=== PATIENT | male | born 1955 | race Caucasian/White ===

== ENCOUNTER 2017-06-11 18:25 | Inpatient (IN) | payer BC, OTHER ==
[~2017-06-11] VITALS: Ht 177.8 cm; Wt 84.3 kg
[2017-06-11 21:17] VITALS: BP 112/56; PULSE 100; PULSE 90; TEMP 98.6
[2017-06-11] MEDS ORDERED: ZOVIRAX400 MG PO (21:26)
[2017-06-11] MEDS ORDERED: ZYLOPRIM 300MG300 MG PO (21:27)
[2017-06-11] MEDS ORDERED: GLUCOPHAGE XR750 MG PO (21:28)
[2017-06-11] MEDS ORDERED: GLUCOTROL 5M5 MG/TAB PO (21:28)
[2017-06-11] MEDS ORDERED: ATIVAN 0.50.5 MG/TAB PO (21:29)
[2017-06-11] MEDS ORDERED: COMPAZINE 110 MG/TAB PO (21:30)
[2017-06-12] VITALS (14 sets, daily range): BP systolic 107–141; BP diastolic 40–61; PULSE 84–108; TEMP 97.1–98.6
[2017-06-12] MEDS ORDERED: LYRICA300 MG PO (03:41)
[2017-06-12 07:29] LABS: MEAN CELL VOLUME 85 fl (80.0-100.0); MEAN CORPUSCULAR HGB CONC 33 g/dl (33.0-37.0); MEAN PLATELET VOLUME 10.2 fl (7.4-10.4); PLATELET COUNT 75 K/mm3 (130-400); RED BLOOD COUNT 2.34 M/mm3 (4.20-5.60); REDCELL DISTRIBUTION WIDTH-CV 19.7 % (11.5-14.5)
[2017-06-12 07:33] LABS: HEMATOCRIT 19.8 % (42.0-52.0); HEMOGLOBIN 6.6 g/dl (13.5-18.0); MEAN CORPUSCULAR HEMOGLOBIN 28 pg (27.0-31.0)
[2017-06-12 07:43] LABS: ALBUMIN 2.6 gm/dL (3.5-5.0); BILIRUBIN,TOTAL 0.4 mg/dL (0.0-1.0); CALCIUM 7.7 mg/dL (8.4-10.2); CREATININE, serum 0.83 mg/dL (0.66-1.25); POTASSIUM 3.6 mmol/L (3.4-5.0); TOTAL PROTEIN 5.5 gm/dL (6.4-8.2)
[2017-06-12 08:04] LABS: ANISOCYTOSIS 2+; BAND 28 % (0-10); LYMPHOCYTE 28 % (20.0-51.0); NEUTROPHILS 32 % (42.0-75.2); PLATELET ESTIMATE DECREASED (NORMAL)
[2017-06-12 08:05] LABS: POLYCHROMASIA 1+
[2017-06-12 13:23] LABS: HEMATOCRIT 19.7 % (42.0-52.0); HEMOGLOBIN 6.5 g/dl (13.5-18.0)
[2017-06-13] VITALS (7 sets, daily range): BP systolic 112–173; BP diastolic 49–81; PULSE 93–118; TEMP 98–98.8
[2017-06-13 07:02] LABS: MEAN CELL VOLUME 86 fl (80.0-100.0); MEAN CORPUSCULAR HGB CONC 33 g/dl (33.0-37.0); MEAN PLATELET VOLUME 10.7 fl (7.4-10.4); PLATELET COUNT 67 K/mm3 (130-400); RED BLOOD COUNT 2.83 M/mm3 (4.20-5.60); REDCELL DISTRIBUTION WIDTH-CV 18.3 % (11.5-14.5)
[2017-06-13 07:06] LABS: HEMATOCRIT 24.3 % (42.0-52.0); HEMOGLOBIN 8.1 g/dl (13.5-18.0); MEAN CORPUSCULAR HEMOGLOBIN 29 pg (27.0-31.0)
[2017-06-13 07:11] LABS: ALBUMIN 2.5 gm/dL (3.5-5.0); BILIRUBIN,TOTAL 0.2 mg/dL (0.0-1.0); CALCIUM 7.4 mg/dL (8.4-10.2); CREATININE, serum 0.79 mg/dL (0.66-1.25); POTASSIUM 3.8 mmol/L (3.4-5.0); TOTAL PROTEIN 5.2 gm/dL (6.4-8.2)
[2017-06-14 03:36] VITALS: BP 132/61; PULSE 99; TEMP 98.8
[2017-06-14 07:09] LABS: MEAN CELL VOLUME 85 fl (80.0-100.0); MEAN CORPUSCULAR HGB CONC 33 g/dl (33.0-37.0); MEAN PLATELET VOLUME 10.8 fl (7.4-10.4); PLATELET COUNT 87 K/mm3 (130-400); RED BLOOD COUNT 3.09 M/mm3 (4.20-5.60); REDCELL DISTRIBUTION WIDTH-CV 18.6 % (11.5-14.5)
[2017-06-14 07:18] LABS: HEMATOCRIT 26.4 % (42.0-52.0); HEMOGLOBIN 8.7 g/dl (13.5-18.0); MEAN CORPUSCULAR HEMOGLOBIN 28 pg (27.0-31.0)
[2017-06-14 07:22] LABS: CALCIUM 7.8 mg/dL (8.4-10.2); CREATININE, serum 0.8 mg/dL (0.66-1.25); POTASSIUM 3.9 mmol/L (3.4-5.0)
[2017-06-14 08:00] VITALS: BP 158/81; PULSE 111; TEMP 97.5
[2017-06-14 11:47] VITALS: BP 163/79; PULSE 107; TEMP 97.6
[2017-06-14 12:17] LABS: BAND 14 % (0-10); LYMPHOCYTE 13 % (20.0-51.0); METAMYELOCYTE 1 % (0-0); NEUTROPHILS 72 % (42.0-75.2)
[2017-06-14 12:18] LABS: HYPOCHROMIA 1+; POLYCHROMASIA 1+
[2017-06-14 12:19] LABS: ANISOCYTOSIS 1+
[2017-06-14 12:22] LABS: PLATELET ESTIMATE DECREASED (NORMAL)
[2017-06-14 15:59] VITALS: BP 155/77; PULSE 120; TEMP 98.2
[2017-06-14 20:17] VITALS: BP 130/79; PULSE 112; TEMP 98.5
[2017-06-14 23:26] VITALS: BP 140/64; PULSE 119; TEMP 98.6
[2017-06-15 02:51] VITALS: BP 132/63; PULSE 100; TEMP 98.8
[2017-06-15 06:21] LABS: MEAN CELL VOLUME 86 fl (80.0-100.0); MEAN CORPUSCULAR HGB CONC 33 g/dl (33.0-37.0); MEAN PLATELET VOLUME 10.8 fl (7.4-10.4); PLATELET COUNT 125 K/mm3 (130-400); RED BLOOD COUNT 3.25 M/mm3 (4.20-5.60); REDCELL DISTRIBUTION WIDTH-CV 18.9 % (11.5-14.5)
[2017-06-15 06:41] LABS: CALCIUM 8.3 mg/dL (8.4-10.2); CREATININE, serum 0.86 mg/dL (0.66-1.25); HEMOGLOBIN 9.2 g/dl (13.5-18.0); MAGNESIUM 2.1 mg/dL (1.6-2.3); MEAN CORPUSCULAR HEMOGLOBIN 28 pg (27.0-31.0); POTASSIUM 3.7 mmol/L (3.4-5.0)
[2017-06-15 07:44] VITALS: BP 162/62; PULSE 83; TEMP 97.8
[2017-06-15 08:28] LABS: ANISOCYTOSIS 2+; BAND 21 % (0-10); EOSINOPHIL 1 % (0-4); HYPOCHROMIA 1+; LYMPHOCYTE 13 % (20.0-51.0); NEUTROPHILS 63 % (42.0-75.2); PLATELET ESTIMATE NORMAL (NORMAL)
[2017-06-15] MEDS ORDERED: LASIX 40MG TABL40 MG PO (11:46)
[2017-06-15] MEDS ORDERED: LEVAQUIN 750MG750 M1 PO (11:47)
[2017-06-15] MEDS ORDERED: IPRATROPIUM BROM3 M1 IH (11:47)
[2017-06-15 12:20] VITALS: BP 150/77; PULSE 107
== END 2017-06-15 14:25 | disposition home or self-care (01) | DRG 809 ==
LOC: MEDICAL 18:25
PROVIDERS: Internal Medicine; Nurse Practitioner Family
DX: D70.3 Neutropenia due to infection (principal); C83.33 Diffuse large B-cell lymphoma, intra-abdominal lymph nodes; N39.0 Urinary tract infection, site not specified; E44.0 Moderate protein-calorie malnutrition; R50.81 Fever presenting with conditions classified elsewhere; Z87.891 Personal history of nicotine dependence; B96.1 Klebsiella pneumoniae [K. pneumoniae] as the cause of diseases classified elsewhere; D64.9 Anemia, unspecified; E11.9 Type 2 diabetes mellitus without complications
CPT/HCPCS: 99232-AI; 99233-AI; 99239; A9284; J0692; J1447; J1815; J1956; J2405; J3480; P9016